=== PATIENT | male | born 1960 | race Caucasian/White ===

== ENCOUNTER 2024-02-22 06:42 | Day surgery (SDC) | payer OTHER ==
[~2024-02-22] VITALS: Ht 172.7 cm; Wt 72.6 kg
[2024-02-22] MEDS ORDERED: SIMETHICONE 40 MG/0.6 ML ML ONE (06:59)
[2024-02-22] MEDS ORDERED: MIDAZOLAM HCL 5 MG/5 ML VIAL ONE ×2 (07:00→09:23)
[2024-02-22] MEDS ORDERED: MEPERIDINE 100 MG INJ. 100 MG/ML VIAL ONE (07:00)
[2024-02-22 10:56] VITALS: O2SAT 100
[2024-02-22 18:00] VITALS: BP_SYST 110; PULSE 76; RESP 14
== END 2024-02-22 10:50 | disposition home or self-care (01) ==
LOC: SDS 06:42 → SMU 06:43 → SDS 10:50
PROVIDERS: ATTEND Internal Medicine Gastroenterology
DX: K59.09 Other constipation (principal); K29.50 Unspecified chronic gastritis without bleeding; K64.8 Other hemorrhoids; K29.80 Duodenitis without bleeding; D64.9 Anemia, unspecified; K31.89 Other diseases of stomach and duodenum; K21.00 Gastro-esophageal reflux disease with esophagitis, without bleeding; E78.5 Hyperlipidemia, unspecified; K25.9 Gastric ulcer, unspecified as acute or chronic, without hemorrhage or perforation; I10 Essential (primary) hypertension; E11.9 Type 2 diabetes mellitus without complications; F17.210 Nicotine dependence, cigarettes, uncomplicated; Z79.84 Long term (current) use of oral hypoglycemic drugs; Z79.899 Other long term (current) drug therapy
CPT/HCPCS: 45378; 43239; 87081; 36415; 82948; 88305; 88312; 88313; 99152; 99153; G0378; J2250; J2175